=== PATIENT | female | born 1955 | race Caucasian/White ===

== ENCOUNTER 2017-12-30 08:29 | Day surgery (SDC) | payer BC ==
[~2017-12-30 08:29] MED LIST: Lactated Ringers 1,000 ML IV SCH; Lidocaine 1%/Sod Bicarbonate in NS 8.4% 1 ML Syringe IDERM PRN; Sodium Chloride 0.9% 10 ML Syringe FLUSH PRN
--- NOTE | 2017-12-30 09:00 | PCM.PREANE ---
Preanesthetic Assessment - Anesthesia/Transfusion/Family Hx Anesthesia History: Prior Anesthesia Without Reaction Family History of Anesthesia Reaction: No Transfusion History: No Prior Transfusion(s) - Review of Systems General: No Symptoms Pulmonary: No Symptoms Cardiovascular: No Symptoms Gastrointestinal: Abdominal Pain Neurological: No Symptoms Other: Reports: None - Physical Assessment NPO Status Date: 12/29/17 NPO Status Time: 00:00 Pulse: 85 O2 Sat by Pulse Oximetry: 96 Respiratory Rate: 16 Blood Pressure: 115/80 Temperature: 36.8 C Height: 1.6 m Weight: 73.663 kg ASA Class: 2 Mental Status: Alert & Oriented x3 Airway Class: Mallampati = 1 Dentition: Reports: Normal Dentition Thyro-Mental Finger Breadths: 3 Mouth Opening Finger Breadths: 3 ROM/Head Extension: Full Lungs: Clear to Auscultation, Normal Respiratory Effort Cardiovascular: Regular Rate, Regular Rhythm - Allergies Allergies/Adverse Reactions: Allergies Allergy/AdvReac Type Severity Reaction Status Date / Time Penicillins Allergy Mild Rash Verified 12/29/17 15:16 - Blood Blood Available: No Product(s) Available: None - Anesthesia Plan Pre-Op Medication Ordered: None - Acknowledgements Anesthesia Type Planned: MAC Pt an Appropriate Candidate for the Planned Anesthesia: Yes Alternatives and Risks of Anesthesia Discussed w Pt/Guardian: Yes Pt/Guardian Understands and Agrees with Anesthesia Plan: Yes PreAnesthesia Questionnaire HEENT History: Reports: Impaired Vision, Sinusitis, Other (See Below) Other HEENT History: impaired vision, wears glasses Cardiovascular History: Reports: None Respiratory History: Reports: None Gastrointestinal History: Reports: GERD, Other (See Below) Other Gastrointestinal History: rectal itching Genitourinary History: Reports: None INTELLIGENCE INTERN History: Reports: None Musculoskeletal History: Reports: None Neurological History: Reports: None Psychiatric History: Reports: None Endocrine/Metabolic History: Reports: None, Other (See Below) Immunologic History: Reports: None Oncologic (Cancer) History: Reports: None Dermatologic History: Reports: Other (See Below) Other Dermatologic History: atypical pigmented skin lesion - Past Surgical History HEENT Surgical History: Reports: Laser Surgery Cardiovascular Surgical History: Reports: None Respiratory Surgical History: Reports: None GI Surgical History: Reports: Appendectomy Female Surgical History: Reports: None Male Surgical History: Reports: None Neurological Surgical History: Reports: None Musculoskeletal Surgical History: Reports: None Oncologic Surgical History: Reports: None - SUBSTANCE USE Smoking Status *Q: Former Smoker Recreational Drug Use History: No - HOME MEDS Home Medications: Home Meds Calcium Carbonate/Vitamin D3 [Os-Arnal[place] 500+D] 2 tab PO DAILY 10/11/14 [History] Hydrocodone/Acetaminophen [[place] 5-325] 1 tab PO Q4H PRN #30 tablet 10/12/14 [Rx ] - CURRENT (IN HOUSE) MEDS Current Meds: Current Medications Lactated Ringer's (Ringers, Lactated) 1,000 mls @ 125 mls/hr IV ASDIRECTED PERCY Stop: 12/30/17 18:00 Lidocaine/Sodium Bicarbonate (Buffered Lidocaine 1% In Ns 8.4%) 0.25 ml IDERM ONETIME PRN PRN Reason: Prior to IV Start Stop: 12/30/17 18:00 Sodium Chloride (Saline Flush) 10 ml FLUSH ASDIRECTED PRN PRN Reason: Keep Vein Open Stop: 12/30/17 18:00
[2017-12-30] MEDS ORDERED: fentaNYL 100 MCG/2 ML SDV ONE (09:16)
[2017-12-30] MEDS ORDERED: Propofol 200 MG/20 ML SDV ONE ×2 (09:16→09:52)
[2017-12-30] MEDS ORDERED: Lidocaine 1% 4 ML ONE (09:17)
[2017-12-30] MEDS ORDERED: Midazolam 1 MG/ML 2 ML SDV ONE (09:17)
--- NOTE | 2017-12-30 10:04 | PCM.OPNOTE ---
- General Post-Op/Procedure Note Date of Surgery/Procedure: 12/30/17 Operative Procedure(s): Colonoscopy Findings: Anal tags Pre Op Diagnosis: Screening colonoscopy Post-Op Diagnosis: Anal tags Anesthesia Technique: MAC, Moderate Sedation Primary Surgeon: Leodan Bailey Pathology: None EBL in mLs: 0 Complications: None Condition: Good Free Text/Narrative:: After adequate IV sedation and analgesia was obtained with monitoring the patient was placed on her left side. Perianal inspection revealed the anal tags. Digital rectal examination was otherwise unremarkable. A lubricated colonoscope was inserted into the rectum and advanced to the cecum with abdominal pressure. The bowel preparation was excellent. The cecum right colon transverse and descending colons were endoscopically normal with no mass lesions or inflammatory changes seen. The sigmoid and rectum were unremarkable as well. Air was removed as I finished the procedure which she tolerated well. Photographs were taken and for the patient for the medical record.
[2017-12-30 10:10] VITALS: BP 98/68
--- NOTE | 2017-12-30 10:17 | PCM48HPAN ---
Post Anesthesia Note - EVALUATION WITHIN 48HRS OF ANESTHETIC Vital Signs in Normal Range: Yes Patient Participated in Evaluation: Yes Respiratory Function Stable: Yes Airway Patent: Yes Cardiovascular Function Stable: Yes Hydration Status Stable: Yes Pain Control Satisfactory: Yes Nausea and Vomiting Control Satisfactory: Yes Mental Status Recovered: Yes
== END 2017-12-30 10:32 | disposition home or self-care (01) ==
LOC: JD.SDS 08:29
PROVIDERS: ATTEND Surgery
DX: Z12.11 Encounter for screening for malignant neoplasm of colon (principal); K64.4 Residual hemorrhoidal skin tags; F17.200 Nicotine dependence, unspecified, uncomplicated; K21.9 Gastro-esophageal reflux disease without esophagitis; Z79.899 Other long term (current) drug therapy; Z80.0 Family history of malignant neoplasm of digestive organs
CPT/HCPCS: 45378; J2001; J2250; J3010; J7120; J2704

== ENCOUNTER 2020-10-21 14:03 | Emergency (ER) | payer BC ==
[2020-10-21] MEDS ORDERED: Sodium Chloride 0.9% 10 ML Syringe FLUSH PRN (14:22)
[2020-10-21] MEDS ORDERED: HYDROmorphone 0.5 MG/0.5 ML Syringe IVPUSH ONE ×2 (14:23→15:17)
[2020-10-21] MEDS ORDERED: Ondansetron 4 MG/2 ML SDV IVPUSH ONE (14:25)
--- NOTE | 2020-10-21 14:30 | EDM.PDOC ---
ED HPI GENERAL MEDICAL PROBLEM - General Chief Complaint: Abdominal Pain Stated Complaint: STOMACH PAIN/SOB Time Seen by Provider: 10/21/20 14:17 Source of Information: Reports: Patient, RN Notes Reviewed (Vitals: Pulse at 86 bpm, temperature 98.9 F, respiratory rate 18 breaths/min, blood pressure 134/87, O2 sats 100% on room air.) History Limitations: Reports: No Limitations - History of Present Illness INITIAL COMMENTS - FREE TEXT/NARRATIVE: Patient is a 64-year-old female who presents to the ED for evaluation of her epigastric discomfort and shortness of breath. Patient notes that this was of sudden onset and just started happening. She is holding her epigastric region, and states that the pain radiates into her midsternal chest, and does shoot through to her back as well. She cannot tell me how it hurts but it "just hurts". She has had no nausea or vomiting, no fevers or chills. She only had a banana and an apple for breakfast with 2 grapes at lunchtime. Patient notes she does have a history of rib fracture 3 weeks ago, and points to her right lower chest as the source of the fracture. She took 2 Tylenol tablets 2 hours ago, and 2 aspirin just prior to coming to the ER as she was worried that it could be cardiac she states that she has some mild shortness of breath, that she feels is present due to the pain. She notes that she had a physical exam recently, and her laboratory evaluation was in good standing. Epigastric Pain Score (Numeric/FACES): 8 - Related Data Allergies Allergy/AdvReac Type Severity Reaction Status Date / Time Penicillins Allergy Mild Rash Verified 10/21/20 14:11 Home Meds: Home Meds . 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 ED EXAM, GI/ABD - Physical Exam Exam: See Below Exam Limited By: No Limitations General Appearance: Alert, WD/WN, No Apparent Distress, Anxious (generalized) Respiratory/Chest: No Respiratory Distress, Lungs Clear, Normal Breath Sounds, No Accessory Muscle Use, Chest Non-Tender Cardiovascular: Normal Peripheral Pulses, Regular Rate, Rhythm, No Edema GI/Abdominal Exam: Normal Bowel Sounds, Soft, Non-Tender, No Distention, No Mass Extremities: Normal Inspection, Normal Capillary Refill Neurological: Alert, Oriented, Normal Cognition, No Motor/Sensory Deficits Psychiatric: Normal Affect, Normal Mood Skin Exam: Warm, Dry, Intact, Normal Color, No Rash #1 Interpretation EKG Date: 10/21/20 Time: 14:44 Rhythm: NSR Rate (Beats/Min): 64 [place]: Normal P-Wave: Present QRS: Normal ST-T: Normal QT: Normal Comparison: NA - No Prior EKG EKG Interpretation Comments: No obvious ischemia or acute ST changes noted, reviewed by myself and Dr. Cunha. Course - Vital Signs Last Recorded V/S: Last Vital Signs Temp 97.7 F 10/21/20 17:45 Pulse 64 10/21/20 17:45 Resp 16 10/21/20 17:45 BP 125/81 10/21/20 17:45 Pulse Ox 99 10/21/20 17:45 - Orders/Labs/Meds Orders: Active Orders 24 hr Category Date Time Status EKG Documentation Completion [RC] STAT Care 10/21/20 14:23 Ordered Peripheral IV Care [RC] . DIRECTED Care 10/21/20 14:23 Ordered Chest 2V [CR] Stat Exams 10/21/20 14:23 Ordered Chest Abdomen Pelvis w Cont [CT] Stat Exams 10/21/20 15:27 Ordered SEDIMENTATION RATE AUTO [HEME] Stat Lab 10/21/20 16:44 Ordered Sodium Chloride 0.9% [Normal Saline] 100 ml Med 10/21/20 16:15 Active IV ASDIRECTED Sodium Chloride 0.9% [Saline Flush] Med 10/21/20 14:22 Ordered 10 ml FLUSH ASDIRECTED PRN Peripheral IV Insertion Adult [OM.PC] Stat Oth 10/21/20 14:23 Ordered Medication Orders Sodium Chloride (Normal Saline) 100 mls @ 60 mls/hr IV ASDIRECTED PERCY Last Admin: 10/21/20 16:08 Dose: 60 mls/hr Documented by: PAN Sodium Chloride (Sodium Chloride 0.9% 10 Ml Syringe) 10 ml FLUSH ASDIRECTED PRN PRN Reason: Keep Vein Open Last Admin: 10/21/20 14:33 Dose: 10 ml Documented by: JAMES Labs: Laboratory Tests 10/21/20 10/21/20 10/21/20 Range/Units 14:25 14:25 14:25 WBC 8.92 (3.98-10.04) K/mm3 RBC 4.52 (3.98-5.22) M/mm3 Hgb 14.2 (11.2-15.7) gm/dl Hct 42.3 (34.1-44.9) % MCV 93.6 (79.4-94.8) fl MCH 31.4 (25.6-32.2) pg MCHC 33.6 (32.2-35.5) g/dl RDW Std Deviation 44.4 (36.4-46.3) fL Plt Count 321 (182-369) K/mm3 MPV 9.2 L (9.4-12.3) fl Neut % (Auto) 59.4 (34.0-71.1) % Lymph % (Auto) 33.7 (19.3-51.7) % Darke % (Auto) 5.4 (4.7-12.5) % Eos % (Auto) 0.7 (0.7-5.8) Baso % (Auto) 0.7 (0.1-1.2) % Neut # (Auto) 5.30 (1.56-6.13) K/mm3 Lymph # (Auto) 3.01 (1.18-3.74) K/mm3 Darke # (Auto) 0.48 H (0.24-0.36) K/mm3 Eos # (Auto) 0.06 (0.04-0.36) K/mm3 Baso # (Auto) 0.06 (0.01-0.08) K/mm3 PT 10.9 (9.7-12.0) SECONDS INR 1.02 APTT 27.8 (21.7-31.4) SECONDS D-Dimer, Quantitative (0.19-0.50) mg/L Sodium 136 (136-145) mEq/L Potassium 4.0 (3.5-5.1) mEq/L Chloride 98 (98-107) mEq/L Carbon Dioxide 27 (21-32) mEq/L Anion Gap 15.0 (5-15) BUN 19 H (7-18) mg/dL Creatinine 1.0 (0.55-1.02) mg/dL Est Cr Clr Drug Dosing 47.01 mL/min Estimated GFR (MDRD) 56 (>60) mL/min BUN/Creatinine Ratio 19.0 H (14-18) Glucose 99 (80-115) mg/dL Calcium 9.7 (8.5-10.1) mg/dL Magnesium 1.9 (1.8-2.4) mg/dl Total Bilirubin 0.6 (0.2-1.0) mg/dL AST 20 (15-37) U/L ALT 25 (14-59) U/L Alkaline Phosphatase 78 (46-116) U/L Troponin I < 0.017 (0.00-0.056) ng/mL C-Reactive Protein (<1.0) mg/dL NT-Pro-B Natriuret Pep (0-125) pg/mL Total Protein 8.6 H (6.4-8.2) g/dl Albumin 4.0 (3.4-5.0) g/dl Globulin 4.6 gm/dL Albumin/Globulin Ratio 0.9 L (1-2) Urine Color (Yellow) Urine Appearance (Clear) Urine pH (5.0-8.0) Ur Specific [place] (1.005-1.030) Urine Protein (Negative) Urine Glucose (UA) (Negative) Urine Ketones (Negative) Urine Occult Blood (Negative) Urine Nitrite (Negative) Urine Bilirubin (Negative) Urine Urobilinogen (0.2-1.0) Ur Leukocyte Esterase (Negative) Urine RBC (0-5) /hpf Urine WBC (0-5) /hpf Ur Squamous Epith Cells (0-5) /hpf Urine Bacteria (FEW) /hpf Urine Mucus (FEW) /hpf 10/21/20 10/21/20 10/21/20 Range/Units 14:25 14:25 14:25 WBC (3.98-10.04) K/mm3 RBC (3.98-5.22) M/mm3 Hgb (11.2-15.7) gm/dl Hct (34.1-44.9) % MCV (79.4-94.8) fl MCH (25.6-32.2) pg MCHC (32.2-35.5) g/dl RDW Std Deviation (36.4-46.3) fL Plt Count (182-369) K/mm3 MPV (9.4-12.3) fl Neut % (Auto) (34.0-71.1) % Lymph % (Auto) (19.3-51.7) % Darke % (Auto) (4.7-12.5) % Eos % (Auto) (0.7-5.8) Baso % (Auto) (0.1-1.2) % Neut # (Auto) (1.56-6.13) K/mm3 Lymph # (Auto) (1.18-3.74) K/mm3 Darke # (Auto) (0.24-0.36) K/mm3 Eos # (Auto) (0.04-0.36) K/mm3 Baso # (Auto) (0.01-0.08) K/mm3 PT (9.7-12.0) SECONDS INR APTT (21.7-31.4) SECONDS D-Dimer, Quantitative 0.55 H (0.19-0.50) mg/L Sodium (136-145) mEq/L Potassium (3.5-5.1) mEq/L Chloride (98-107) mEq/L Carbon Dioxide (21-32) mEq/L Anion Gap (5-15) BUN (7-18) mg/dL Creatinine (0.55-1.02) mg/dL Est Cr Clr Drug Dosing mL/min Estimated GFR (MDRD) (>60) mL/min BUN/Creatinine Ratio (14-18) Glucose (80-115) mg/dL Calcium (8.5-10.1) mg/dL Magnesium (1.8-2.4) mg/dl Total Bilirubin (0.2-1.0) mg/dL AST (15-37) U/L ALT (14-59) U/L Alkaline Phosphatase (46-116) U/L Troponin I (0.00-0.056) ng/mL C-Reactive Protein < 0.2 (<1.0) mg/dL NT-Pro-B Natriuret Pep 192 H (0-125) pg/mL Total Protein (6.4-8.2) g/dl Albumin (3.4-5.0) g/dl Globulin gm/dL Albumin/Globulin Ratio (1-2) Urine Color (Yellow) Urine Appearance (Clear) Urine pH (5.0-8.0) Ur Specific [place] (1.005-1.030) Urine Protein (Negative) Urine Glucose (UA) (Negative) Urine Ketones (Negative) Urine Occult Blood (Negative) Urine Nitrite (Negative) Urine Bilirubin (Negative) Urine Urobilinogen (0.2-1.0) Ur Leukocyte Esterase (Negative) Urine RBC (0-5) /hpf Urine WBC (0-5) /hpf Ur Squamous Epith Cells (0-5) /hpf Urine Bacteria (FEW) /hpf Urine Mucus (FEW) /hpf 10/21/20 10/21/20 Range/Units 17:20 17:25 WBC (3.98-10.04) K/mm3 RBC (3.98-5.22) M/mm3 Hgb (11.2-15.7) gm/dl Hct (34.1-44.9) % MCV (79.4-94.8) fl MCH (25.6-32.2) pg MCHC (32.2-35.5) g/dl RDW Std Deviation (36.4-46.3) fL Plt Count (182-369) K/mm3 MPV (9.4-12.3) fl Neut % (Auto) (34.0-71.1) % Lymph % (Auto) (19.3-51.7) % Darke % (Auto) (4.7-12.5) % Eos % (Auto) (0.7-5.8) Baso % (Auto) (0.1-1.2) % Neut # (Auto) (1.56-6.13) K/mm3 Lymph # (Auto) (1.18-3.74) K/mm3 Darke # (Auto) (0.24-0.36) K/mm3 Eos # (Auto) (0.04-0.36) K/mm3 Baso # (Auto) (0.01-0.08) K/mm3 PT (9.7-12.0) SECONDS INR APTT (21.7-31.4) SECONDS D-Dimer, Quantitative (0.19-0.50) mg/L Sodium (136-145) mEq/L Potassium (3.5-5.1) mEq/L Chloride (98-107) mEq/L Carbon Dioxide (21-32) mEq/L Anion Gap (5-15) BUN (7-18) mg/dL Creatinine (0.55-1.02) mg/dL Est Cr Clr Drug Dosing mL/min Estimated GFR (MDRD) (>60) mL/min BUN/Creatinine Ratio (14-18) Glucose (80-115) mg/dL Calcium (8.5-10.1) mg/dL Magnesium (1.8-2.4) mg/dl Total Bilirubin (0.2-1.0) mg/dL AST (15-37) U/L ALT (14-59) U/L Alkaline Phosphatase (46-116) U/L Troponin I < 0.017 (0.00-0.056) ng/mL C-Reactive Protein (<1.0) mg/dL NT-Pro-B Natriuret Pep (0-125) pg/mL Total Protein (6.4-8.2) g/dl Albumin (3.4-5.0) g/dl Globulin gm/dL Albumin/Globulin Ratio (1-2) Urine Color Yellow (Yellow) Urine Appearance Clear (Clear) Urine pH 8.0 (5.0-8.0) Ur Specific [place] 1.020 (1.005-1.030) Urine Protein Negative (Negative) Urine Glucose (UA) Negative (Negative) Urine Ketones Trace H (Negative) Urine Occult Blood Negative (Negative) Urine Nitrite Negative (Negative) Urine Bilirubin Negative (Negative) Urine Urobilinogen 0.2 (0.2-1.0) Ur Leukocyte Esterase Negative (Negative) Urine RBC 0-5 (0-5) /hpf Urine WBC 0-5 (0-5) /hpf Ur Squamous Epith Cells 0-5 (0-5) /hpf Urine Bacteria Occasional (FEW) /hpf Urine Mucus Not seen (FEW) /hpf Meds: Medications Generic Name Dose Route Start Last Admin Trade Name Waqarq PRN Reason Stop Dose Admin Sodium Chloride 100 mls @ 60 mls/hr 10/21/20 16:15 10/21/20 16:08 Normal Saline IV 60 mls/hr ASDIRECTED PERCY Administration Sodium Chloride 10 ml 10/21/20 14:22 10/21/20 14:33 Sodium Chloride 0.9% 10 Ml Syringe FLUSH 10 ml ASDIRECTED PRN Administration Keep Vein Open Discontinued Medications Generic Name Dose Route Start Last Admin Trade Name Waqarq PRN Reason Stop Dose Admin Fentanyl 100 mcg 10/21/20 15:41 10/21/20 16:32 Fentanyl 100 Mcg/2 Ml Sdv IVPUSH 10/21/20 15:42 50 mcg ONETIME ONE Administration Hydromorphone HCl 0.5 mg 10/21/20 14:23 10/21/20 14:29 Hydromorphone 0.5 Mg/0.5 Ml Syringe IVPUSH 10/21/20 14:24 0.5 mg ONETIME ONE Administration Hydromorphone HCl 0.5 mg 10/21/20 15:17 10/21/20 15:22 Hydromorphone 0.5 Mg/0.5 Ml Syringe IVPUSH 10/21/20 15:18 0.5 mg ONETIME ONE Administration Iopamidol 50 ml 10/21/20 16:06 10/21/20 16:07 Iopamidol 755 Mg/Ml 50 Ml Bottle IVPUSH 10/21/20 16:07 50 ml ONETIME ONE Administration Iopamidol 100 ml 10/21/20 16:06 10/21/20 16:07 Iopamidol 755 Mg/Ml 100 Ml Bottle IVPUSH 10/21/20 16:07 100 ml ONETIME ONE Administration Ondansetron HCl 4 mg 10/21/20 14:25 10/21/20 14:31 Ondansetron 4 Mg/2 Ml Sdv IVPUSH 10/21/20 14:26 4 mg ONETIME ONE Administration Oxycodone/Acetaminophen 2 tab 10/21/20 18:15 Acetaminophen/Oxycodone 325-5 Mg Tab PO 10/21/20 18:16 ONETIME ONE Sodium Chloride 10 ml 10/21/20 16:06 10/21/20 16:08 Sodium Chloride 0.9% 10 Ml Syringe FLUSH 10/21/20 16:07 10 ml ONETIME ONE Administration - Re-Assessments/Exams Free Text/Narrative Re-Assessment/Exam: 10/21/20 14:29 Patient presents to the ED for the evaluation of her sudden onset epigastric discomfort. Unsure as to what could be the etiology of this at this time, her presentation is somewhat dramatic, we will go ahead get a EKG to rule out c ardiac issues, get a chest x-ray as she has had recent rib fractures, and some labs for further evaluation. She will be given 0.5 mg IV Dilaudid and 4 mg Zofran for initial management. 10/21/20 15:23 The patient labs have reported, CBC is unremarkable, metabolic panel essentially unremarkable, troponin is undetectably low, her D-dimer did come back slightly elevated at 0.55, this may very well be a physiologic variant for her age, and she did have a reported fall 3 weeks ago, so again it could slightly be elevated due to that. But with her ongoing chest discomfort, mild shortness of breath, I do think it is pertinent to go forward with the CTA at this time to rule out pulmonary embolus. Patient's chest x-ray demonstrated no mediastinal widening EKG also was without acute ST abnormalities. 10/21/20 16:58 The patient's CTA of her chest abdomen pelvis was done, there is 11 mm low- density nodule within the right thyroid lobe, that may. 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 In the presence of these 2 aneurysms, findings are suggestive of colitis. There are no abdominal aortic aneurysm apparent. There was no sign of a pulmonary embolus on the chest CT performed as angio as well. 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 I would go ahead and order a 3-hour repeat troponin to be performed at around 5:30 PM, have ordered a CRP and a sed rate for inflammatory markers due to the suggestion of vasculitis. We will likely consult cardiovascular in [place] to see if they have any other suggestions. At this time is still pretty unclear what the etiology of the pain could be. 10/21/20 18:07 The patient's second troponin is negative or undetectably low once again. I did go in and reassessed the patient, she states her pain is about a 2 out of 10 at this time however she still having some tenderness in her low abdomen, again the CT demonstrated no focal abnormalities of any organs within her abdomen other than what was already documented above. Still quite unsure as to what is causing her abdominal pain. Patient states that she did have a bowel movement this morning but CT also demonstrated some stool throughout her colon. I did call Dr. Mobley, the vascular surgeon on-call at [facility] in [place], and he states that the vasculitis could benefit from a rheumatology work-up however that should not be causing her pain. Patient has no appendix at this time, there was no visualized ovarian cysts on the CT. Again there is no great answer as to what is causing her pain for today's visit. I will have her follow-up with her regular care provider, either Connie Kenyon or Wilda Oneal in the next day or 2 for rheumatology referral, and to make sure that her abdomen pain is getting better. I will go ahead and give her a few tablets of oxycodone/acetaminophen 5/325 mg for pain management. 10/21/20 18:19 Urine is negative for infection. Departure - Departure Time of Disposition: 18:19 Disposition: Home, Self-Care 01 Condition: Good Clinical Impression: Pain in the abdomen Qualifiers: Abdominal location: generalized Qualified Code(s): R10.84 - Generalized abdominal pain - Discharge Information *PRESCRIPTION DRUG MONITORING PROGRAM REVIEWED*: Yes *COPY OF PRESCRIPTION DRUG MONITORING REPORT IN PATIENT MUNIR: No Instructions: Abdominal Pain, Adult, [id number] Referrals: Shruthi Kenyon FOREIGN EXCHANGE CLERK [Primary Care Provider] - Forms: ED Department Discharge Additional Instructions: You were evaluated in the ER today for your abdomen/chest pain. An extensive work-up was done at today's visit, your EKG was within normal limits, your troponin was undetectably low, you are not suffering from any sort of OK or heart attack at today's visit. Other laboratory evaluation is essentially unremarkable as well. Your D-dimer which is a nonspecific test for clotting was slightly elevated, you were evaluated with a CT of your chest, abdomen, and pelvis with contrast for evaluation of a pulmonary embolus and a possible dissecting aortic aneurysm. You do not have any of these life-threatening injuries. 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 The findings of both of these aneurysms are suggestive of a vasculitis, and it is highly recommended you get a rheumatology referral or consult to see if there is any further testing that needs to be done for this. This can be done on an outpatient basis. A copy of your CT report will be given to you in your discharge packet. You were given a prescription for a strong pain medication, oxycodone/acetaminophen 5/325 mg. Please take 1 tab every 6 hours as needed for pain not relieved by Tylenol or ibuprofen alone. Please note this medication does contain Tylenol in it, so do not take more than 4000 mg in a 24-hour time span. These medications can be addictive, so please take as few as possible to achieve adequate pain control. These meds can also be quite constipating, recommend that you increase your oral fluid intake and take a stool softener like MiraLAX while taking these medications. Do not drive while taking this medi cation. Please increase your oral hydration over the next few days, and I highly and strongly recommend you call either Shruthi Kenyon or Wilda Oneal, and get a follow-up appointment with them tomorrow or the next day so they can make sure that your abdomen pain is getting better as expected, and try to coordinate the rheumatology referral that was recommended. Do not hesitate to return to the ER at any time if symptoms change or worsen. Sepsis Event Note (ED) - Evaluation Sepsis Screening Result: No Definite Risk - Focused Exam Vital Signs: Vital Signs Temp Pulse Resp BP Pulse Ox 10/21/20 17:45 97.7 F 64 16 125/81 99 10/21/20 15:23 98.1 F 76 18 143/89 H 100 10/21/20 14:10 98.9 F 86 18 134/87 100 - My Orders Last 24 Hours: My Active Orders 10/21/20 14:22 Sodium Chloride 0.9% [Saline Flush] 10 ml FLUSH ASDIRECTED PRN 10/21/20 14:23 EKG Documentation Completion [RC] STAT Peripheral IV Care [RC] . DIRECTED Chest 2V [CR] Stat Peripheral IV Insertion Adult [OM.PC] Stat 10/21/20 15:27 Chest Abdomen Pelvis w Cont [CT] Stat 10/21/20 16:15 Sodium Chloride 0.9% [Normal Saline] 100 ml IV ASDIRECTED 10/21/20 16:44 SEDIMENTATION RATE AUTO [HEME] Stat - Assessment/Plan Last 24 Hours: My Active Orders 10/21/20 14:22 Sodium Chloride 0.9% [Saline Flush] 10 ml FLUSH ASDIRECTED PRN 10/21/20 14:23 EKG Documentation Completion [RC] STAT Peripheral IV Care [RC] . DIRECTED Chest 2V [CR] Stat Peripheral IV Insertion Adult [OM.PC] Stat 10/21/20 15:27 Chest Abdomen Pelvis w Cont [CT] Stat 10/21/20 16:15 Sodium Chloride 0.9% [Normal Saline] 100 ml IV ASDIRECTED 10/21/20 16:44 SEDIMENTATION RATE AUTO [HEME] Stat
[2020-10-21] MEDS: fentaNYL 100 MCG/2 ML SDV IVPUSH ONE ×2 (16:03→16:32)
[2020-10-21] MEDS ORDERED: fentaNYL 100 MCG/2 ML SDV IV ONE ×2 (16:03→16:32)
[2020-10-21] MEDS ORDERED: Iopamidol 755 Mg/ML 100 ML Bottle IVPUSH ONE (16:06)
[2020-10-21] MEDS ORDERED: Iopamidol 755 MG/ML 50 ML Bottle IVPUSH ONE (16:06)
[2020-10-21] MEDS ORDERED: Sodium Chloride 0.9% 10 ML Syringe FLUSH ONE (16:06)
[2020-10-21] MEDS ORDERED: Sodium Chloride 0.9% 100 ML IV SCH (16:15)
[2020-10-21 17:52] VITALS: BP 125/81; PULSE 64
[2020-10-21] MEDS ORDERED: Acetaminophen/oxyCODONE 325-5 MG Tab PO ONE (18:15)
--- NOTE | 2020-10-22 10:09 | CR ---
Chest: 2 views of the chest were obtained. Comparison: Prior chest x-ray of 03/23/19. Heart size and mediastinum are normal. Lungs show no acute parenchymal change. Slight scoliosis is noted within the spine. No acute osseous finding is appreciated. Impression: 1. Nothing acute is seen on 2 view chest x-ray. Diagnostic code #2
--- NOTE | 2020-10-22 11:51 | CT ---
CT chest Technique: Multiple axial sections of the chest were obtained. Intravenous contrast was utilized. Study was performed as an aortic protocol. Reconstructed coronal and sagittal images were obtained. Comparison: Prior CT chest study of 06/28/19. Findings: Pulmonary arteries are well opacified with no findings of pulmonary embolism. No filling defects are seen to indicate discrete pulmonary embolism. Thoracic aorta shows no aneurysm. No mediastinal adenopathy is appreciated. No axillary adenopathy is seen. No pericardial thickening is noted. Lung window settings were reviewed. No acute parenchymal change is seen. No pleural effusions are seen. No pneumothorax is seen. Small nodule is noted within the right lobe of the thyroid gland measuring slightly greater than 1 cm. This is stable from prior CT exam. Bone window settings were reviewed which show scattered degenerative change within the spine. No acute osseous finding is appreciated. Impression: 1. Slightly greater than 1 cm nodule within the right thyroid gland. This is stable from prior CT exam. Finding is most likely benign. 2. Nothing acute is seen on CT study of the chest. Diagnostic code #2 I agree with preliminary report from [facility], finalized on 10/21/20, 5:[address] abdomen and pelvis Technique: Multiple axial sections through the abdomen and pelvis were obtained. Intravenous contrast was utilized during the arterial phase. No oral contrast has been given. Comparison: No prior CT abdomen or pelvis exam is available. Upper abdomen seen on CT chest of 06/28/19. Findings: Low density lesion is seen within the right lobe of the liver measuring about 2.0 cm in size which is stable from prior chest CT and is felt compatible with a cyst. No additional abnormality is appreciated within the liver. Spleen appears within normal limits. Adrenal glands show no nodule. Kidneys show symmetric contrast enhancement without hydronephrosis or mass. Gallbladder contains no calcified gallstones. Pancreas shows no discrete abnormality. Abdominal aorta shows no aneurysm or dissection. Superior and celiac axis show no abnormality. There is a focal collection of contrast next to the splenic artery compatible with small aneurysm measuring 1.0 cm. This finding is appreciated on prior study but better seen currently and appears stable. Second small aneurysm is also noted within the right renal artery distally measuring 1.0 cm. This finding is also seen on prior study. Inferior mesenteric artery appears patent. Common iliac arteries and external iliac arteries are patent. No mesenteric abnormalities or retroperitoneal adenopathy is appreciated. No pelvic mass or adenopathy is seen. No free fluid or inflammatory change is appreciated. Appendix is felt to be visualized and normal in size. Minimal increased stool is seen within the colon. Scattered disc calcification is seen within the lumbar spine. Minimal spondylolisthesis at L4-5 compatible with degenerative apophyseal change is seen. Impression: 1. 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 These are stable from prior exam of 2019. 2. Aorta shows no aneurysm or dissection. 3. Cyst within the right lobe of the liver which is stable. Diagnostic code #3 I agree with preliminary report from [facility], finalized on 10/21/20, 5:33 PM CDT
== END 2020-10-21 19:00 | disposition home or self-care (01) ==
LOC: JD.ED 14:03
DX: R10.84 Generalized abdominal pain (principal); R10.13 Epigastric pain; R06.02 Shortness of breath; Z88.0 Allergy status to penicillin
CPT/HCPCS: 36415; 71046; 71260; 74177; 80053; 81001; 83735; 83880; 84484; 85025; 85379; 85610; 85652; 85730; 86140; 93005; 96374; 96375; 96376; 99285; A9270; J1170; J2405; J3010; Q9967; 93010; 99284

== ENCOUNTER 2022-11-27 07:39 | Day surgery (SDC) | payer MEDICARE, BC ==
[~2022-11-27 07:39] MED LIST changes: +Sodium Chloride 0.9% 10 ML Syringe FLUSH SCH
[2022-11-27] MEDS ORDERED: Lidocaine 1% 2 ML ONE (08:29)
[2022-11-27] MEDS ORDERED: Propofol 200 MG/20 ML SDV ONE (08:30)
[2022-11-27] MEDS ORDERED: Midazolam 1 MG/ML 2 ML SDV ONE (08:30)
[2022-11-27] MEDS ORDERED: fentaNYL 100 MCG/2 ML SDV ONE (08:30)
[2022-11-27 10:17] VITALS: BP 126/74; PULSE 82
== END 2022-11-27 10:01 | disposition home or self-care (01) ==
LOC: JD.SDS 07:39
PROVIDERS: ATTEND Surgery
DX: Z12.11 Encounter for screening for malignant neoplasm of colon (principal); Z80.0 Family history of malignant neoplasm of digestive organs; J30.9 Allergic rhinitis, unspecified; F41.9 Anxiety disorder, unspecified; H69.80 Other specified disorders of Eustachian tube, unspecified ear; M62.838 Other muscle spasm; M85.80 Other specified disorders of bone density and structure, unspecified site; E04.1 Nontoxic single thyroid nodule; K21.9 Gastro-esophageal reflux disease without esophagitis; Z88.0 Allergy status to penicillin; Z79.899 Other long term (current) drug therapy; Z79.82 Long term (current) use of aspirin; Z98.890 Other specified postprocedural states; Z87.891 Personal history of nicotine dependence; Z86.16 Personal history of COVID-19; Z96.659 Presence of unspecified artificial knee joint
CPT/HCPCS: J2250; J2704; J3010; J3490; J7120